=== PATIENT | male | born 1995 | race Two or more races ===

== ENCOUNTER 2021-10-02 00:14 | Emergency (ER) | payer BC ==
[~2021-10-02] VITALS: Ht 180.3 cm; Wt 98.0 kg
[2021-10-02] MEDS ORDERED: LIDOCAINE HCL/PF 1% 10 MG/ML 5ML VIAL INFIL ONE (02:45)
[2021-10-02] MEDS ORDERED: BACITRACIN ZINC OINT UDPKT TOP ONE (02:45)
[2021-10-02] MEDS ORDERED: LIDOCAINE HCL 1% 10 MG/ML 10ML VIAL IJ SCH (03:00)
[2021-10-02] MEDS ORDERED: IBUP-2029 PO (03:31)
[2021-10-02 03:58] VITALS: BP 135/88
== END 2021-10-02 04:00 | disposition home or self-care (01) ==
LOC: ER 00:14
DX: S91.312A Laceration without foreign body, left foot, initial encounter (principal); X58.XXXA Exposure to other specified factors, initial encounter; Y93.89 Activity, other specified; Y92.89 Other specified places as the place of occurrence of the external cause; Y99.8 Other external cause status
CPT/HCPCS: 12002; 99283; J3490